=== PATIENT | male | born 1955 | race African-American/Black ===

== ENCOUNTER 2022-04-25 18:30 | Emergency (ER) | payer SELFPAY ==
[~2022-04-25] VITALS: Ht 170.2 cm; Wt 91.0 kg
[2022-04-25 19:56] VITALS: BP 151/78
[2022-04-25] MEDS ORDERED: MAGNESIUM/ALUMINUM HYDROXIDE/SIMETHICONE 30ML UDC PO STA (20:07)
[2022-04-25] MEDS ORDERED: VISCOUS LIDOCAINE 2% 15 ML UDC PO STA (20:07)
[2022-04-25] MEDS ORDERED: PANTOPRAZOLE SODIUM 40 MG/VIAL IV STA (20:07)
[2022-04-25] MEDS ORDERED: ONDANSETRON HCL 4MG/2ML INJ IV STA (20:07)
[2022-04-25] MEDS ORDERED: SODIUM CHLORIDE 0.9% 1,000 ML IV ONE (20:15)
[2022-04-25 21:02] LABS: BASOPHILS % 0.4 % (0.0-2.0); EOSINOPHILS % 0.4 % (0.0-5.0); HEMATOCRIT. 44.3 % (42.0-52.0); HEMOGLOBIN. 14.7 g/dL (14.0-18.0); LYMPHOCYTES % 8.7 % (20.0-50.0); MEAN CORPUSCULAR HEMOGLOBIN 31.7 pg (28.0-32.0); MEAN CORPUSCULAR VOLUME 95.3 fL (80.0-94.0); MEAN PLATELET VOLUME 8.6 fl (7.4-10.4); MONOCYTES % 6.5 % (2.0-8.0); PLATELET 276 x1000/uL (130-400); RED BLOOD CELL COUNT 4.65 mill/uL (4.7-6.1); RED CELL DISTRIBUTION WIDTH 14.4 % (11.6-14.6)
[2022-04-25] MEDS ORDERED: HALOPERIDOL LACTATE 5MG/ML VIAL IM NR (22:00)
== END 2022-04-25 19:57 | disposition left against medical advice (07) ==
LOC: ER 18:30
DX: F10.20 Alcohol dependence, uncomplicated (principal); R11.2 Nausea with vomiting, unspecified; I10 Essential (primary) hypertension; E87.2 Acidosis; F03.90 Unspecified dementia, unspecified severity, without behavioral disturbance, psychotic disturbance, mood disturbance, and anxiety; Y90.9 Presence of alcohol in blood, level not specified
CPT/HCPCS: 36415; 83605; 85025; 86850; 86900; 86901; 99283; J7030

== ENCOUNTER 2023-03-03 06:56 | Inpatient (IN) | payer MEDICARE, MEDICAID ==
[~2023-03-03] VITALS: Ht 175.3 cm; Wt 66.7 kg
[2023-03-03 08:49] LABS: BASOPHILS % 0.6 % (0.0-2.0); EOSINOPHILS % 0.9 % (0.0-5.0); HEMATOCRIT. 41.8 % (42.0-52.0); HEMOGLOBIN. 14.1 g/dL (14.0-18.0); LYMPHOCYTES % 17.8 % (20.0-50.0); MEAN CORPUSCULAR HEMOGLOBIN 32.1 pg (28.0-32.0); MEAN CORPUSCULAR VOLUME 95.3 fL (80.0-94.0); MEAN PLATELET VOLUME 8.2 fl (7.4-10.4); MONOCYTES % 2.7 % (2.0-8.0); PLATELET 314 x1000/uL (130-400); RED BLOOD CELL COUNT 4.38 mill/uL (4.7-6.1); RED CELL DISTRIBUTION WIDTH 14.3 % (11.6-14.6)
[2023-03-03 08:55] LABS: CHLORIDE 111 mEq/L (98-107)
[2023-03-03 09:02] LABS: ETHANOL BLOOD < 10 mg/dL
[2023-03-03] MEDS ORDERED: LEVETIRACETAM 500MG PREMIX 100 ML IV ONE ×2 (09:15)
[2023-03-03] MEDS ORDERED: LORAZEPAM 2MG/ML CPJ IV ONE (10:00)
[2023-03-03] MEDS ORDERED: ACETAMINOPHEN 325MG TABLET PO PRN ×2 (15:45)
[2023-03-03] MEDS ORDERED: GUAIFENESIN 200MG/10ML SUGAR FREE UDC PO PRN (15:45)
[2023-03-03] MEDS ORDERED: IPRATROPIUM/ALBUTEROL 0.5-3(2.5)MG/3ML NEB NEB PRN (15:45)
[2023-03-03] MEDS ORDERED: MAGNESIUM/ALUMINUM HYDROXIDE/SIMETHICONE 30ML UDC PO PRN (15:45)
[2023-03-03] MEDS ORDERED: CLONIDINE 0.1MG TABLET PO PRN (15:45)
[2023-03-03] MEDS ORDERED: ONDANSETRON HCL 4MG/2ML INJ IV PRN (15:45)
[2023-03-03] MEDS: ENOXAPARIN 40MG/0.4ML SYR SUBCUT SCH (16:00)
[2023-03-03] MEDS: DEXT 5%/0.45% NACL 1000ML 1,000 ML IV SCH (16:00)
[2023-03-03] MEDS ORDERED: FOLIC ACID 1 MG, THIAMINE HCL 100 MG, MVI, ADULT NO.1 10 ML in DEXTROSE 5% WATER 1,000 ML IV ONE ×4 (21:00)
[2023-03-03] MEDS: LEVETIRACETAM 500MG TABLET PO SCH (21:00)
[2023-03-04] MEDS: HYDROXYZINE 25MG TABLET PO PRN ×2 (03:05→14:51)
[2023-03-04 04:48] VITALS: BP 146/85
[2023-03-04 06:29] LABS: CHLORIDE 105 mEq/L (98-107)
[2023-03-04 06:45] LABS: HDL CHOLESTEROL 100 mg/dL (40-59); LDL CHOLESTEROL 76 mg/dL (5-100); PHOSPHORUS 2.5 mg/dL (2.5-4.9); T4 FREE 0.84 ng/dL (0.76-1.46)
[2023-03-04 06:56] LABS: BASOPHILS % 0.3 % (0.0-2.0); HEMATOCRIT. 40.6 % (42.0-52.0); HEMOGLOBIN. 13.5 g/dL (14.0-18.0); LYMPHOCYTES % 12.5 % (20.0-50.0); MEAN CORPUSCULAR HEMOGLOBIN 31.9 pg (28.0-32.0); MEAN CORPUSCULAR VOLUME 95.7 fL (80.0-94.0); MEAN PLATELET VOLUME 8.6 fl (7.4-10.4); MONOCYTES % 7.7 % (2.0-8.0); NEUTROPHILS % 79.5 % (40.0-76.0); PLATELET 285 x1000/uL (130-400); RED BLOOD CELL COUNT 4.24 mill/uL (4.7-6.1); RED CELL DISTRIBUTION WIDTH 14.3 % (11.6-14.6)
[2023-03-04 07:20] LABS: VITAMIN B12 SERUM 310 pg/mL (211-911)
[2023-03-04 08:00] VITALS: BP 109/74
[2023-03-04] MEDS: DEXT 5%/0.45% NACL 1000ML 1,000 ML IV SCH ×2 (08:08→18:12)
[2023-03-04] MEDS: ENOXAPARIN 40MG/0.4ML SYR SUBCUT SCH (08:08)
[2023-03-04] MEDS: LEVETIRACETAM 500MG TABLET PO SCH ×2 (08:08→20:01)
[2023-03-04 11:41] VITALS: BP 135/79
[2023-03-04 16:00] VITALS: BP 127/75
[2023-03-04] MEDS: HALOPERIDOL 5MG TABLET PO PRN (19:57)
[2023-03-04 20:00] VITALS: BP 120/80
[2023-03-05] VITALS: BP 112/74
[2023-03-05] MEDS: HYDROXYZINE 25MG TABLET PO PRN ×2 (03:10→08:22)
[2023-03-05 04:00] VITALS: BP 138/81
[2023-03-05 05:57] LABS: CHLORIDE 105 mEq/L (98-107)
[2023-03-05] MEDS: HALOPERIDOL 5MG TABLET PO PRN (07:02)
[2023-03-05 08:00] VITALS: BP 157/79
[2023-03-05] MEDS: DEXT 5%/0.45% NACL 1000ML 1,000 ML IV SCH (08:00)
[2023-03-05] MEDS: LEVETIRACETAM 500MG TABLET PO SCH (08:22)
[2023-03-05] MEDS: ENOXAPARIN 40MG/0.4ML SYR SUBCUT SCH (08:23)
[2023-03-05 10:45] LABS: BASOPHILS % 0.7 % (0.0-2.0); HEMATOCRIT. 43.5 % (42.0-52.0); HEMOGLOBIN. 14.6 g/dL (14.0-18.0); LYMPHOCYTES % 34.2 % (20.0-50.0); MEAN CORPUSCULAR HEMOGLOBIN 32.6 pg (28.0-32.0); MEAN CORPUSCULAR VOLUME 96.8 fL (80.0-94.0); MONOCYTES % 8.7 % (2.0-8.0); NEUTROPHILS % 53.4 % (40.0-76.0); PLATELET 294 x1000/uL (130-400); RED BLOOD CELL COUNT 4.49 mill/uL (4.7-6.1); RED CELL DISTRIBUTION WIDTH 14.7 % (11.6-14.6)
[2023-03-05 12:00] VITALS: BP 125/74
[2023-03-05] MEDS ORDERED: HALOPERIDOL LACTATE 5MG/ML VIAL IM PRN (12:00)
[2023-03-05 12:09] VITALS: BP 125/74
[2023-03-05] MEDS ORDERED: HYDR-3735 PO (12:24)
[2023-03-05] MEDS ORDERED: KEPP500 PO (12:24)
== END 2023-03-05 14:10 | disposition home health service (06) | DRG 100 ==
LOC: ER 06:56 → MICUSO 14:13 → EDBEDREQ 14:17 → SUPCPDRO 15:36 → 7WST 03-04 05:01
PROVIDERS: ADMIT Internal Medicine; ATTEND Internal Medicine
DX: R56.9 Unspecified convulsions (principal); G93.41 Metabolic encephalopathy; R73.9 Hyperglycemia, unspecified; F03.90 Unspecified dementia, unspecified severity, without behavioral disturbance, psychotic disturbance, mood disturbance, and anxiety; Z78.1 Physical restraint status; Z86.73 Personal history of transient ischemic attack (TIA), and cerebral infarction without residual deficits
CPT/HCPCS: 36415; 71045; 80048; 80053; 80061; 80320; 82607; 82746; 83036; 83735; 84100; 84439; 84443; 85025; 92610; 93005; 93306; 97162; 99285; J1630; J1650; J1953; J2060; J3411; J3490; J7070; G0480

== ENCOUNTER 2023-04-30 09:57 | Emergency (ER) | payer MEDICARE, MEDICAID ==
[~2023-04-30] VITALS: Ht 177.8 cm; Wt 82.0 kg
[~2023-04-30 09:57] MED LIST: HYDR-3735 PO; KEPP500 PO
[2023-04-30] MEDS ORDERED: LIDOCAINE 5% PATCH TOP ONE (10:15)
[2023-04-30] MEDS ORDERED: ACETAMINOPHEN 325MG TABLET PO ONE (10:15)
[2023-04-30 11:21] LABS: BASOPHILS % 0.7 % (0.0-2.0); EOSINOPHILS % 1.9 % (0.0-5.0); HEMATOCRIT. 40.3 % (42.0-52.0); HEMOGLOBIN. 13.7 g/dL (14.0-18.0); LYMPHOCYTES % 40.1 % (20.0-50.0); MEAN CORPUSCULAR HEMOGLOBIN 32.4 pg (28.0-32.0); MEAN CORPUSCULAR VOLUME 95.4 fL (80.0-94.0); MONOCYTES % 10.6 % (2.0-8.0); NEUTROPHILS % 46.7 % (40.0-76.0); PLATELET 271 x1000/uL (130-400); RED BLOOD CELL COUNT 4.23 mill/uL (4.7-6.1); RED CELL DISTRIBUTION WIDTH 14.5 % (11.6-14.6)
[2023-04-30] MEDS ORDERED: ACET-2708 MT (12:51)
[2023-04-30 13:20] VITALS: BP 135/64
[2023-04-30 13:28] LABS: CHLORIDE 107 mEq/L (98-107)
== END 2023-04-30 13:20 | disposition home or self-care (01) ==
LOC: ER 09:57
DX: M54.50 Low back pain, unspecified (principal); Z00.00 Encounter for general adult medical examination without abnormal findings; Z20.822 Contact with and (suspected) exposure to COVID-19; Z86.59 Personal history of other mental and behavioral disorders; R55 Syncope and collapse
CPT/HCPCS: 36415; 70450; 72131; 72170; 80053; 85025; 87426; 93005; 99285; C9803

== ENCOUNTER 2023-09-26 14:18 | Emergency (ER) | payer MEDICAID, MEDICARE ==
[~2023-09-26] VITALS: Ht 175.3 cm; Wt 82.0 kg
[~2023-09-26 14:18] MED LIST changes: +ACET-2708 MT
[2023-09-26 14:26] VITALS: BP 130/78; PULSE 63; RESP 18; TEMP 98; O2SAT 96
== END 2023-09-26 14:59 | disposition left against medical advice (07) ==
LOC: ER 14:18
DX: R45.6 Violent behavior (principal); Z53.21 Procedure and treatment not carried out due to patient leaving prior to being seen by health care provider
CPT/HCPCS: 99281